=== PATIENT | female | born 1950 | race Caucasian/White ===

== ENCOUNTER → 2016-10-15 | Outpatient (REF) | payer MEDICARE, OTHER ==
[~2016-10-15] MED LIST: /PROM25SU; /ROPI25TA; ACET65TA; AMOX500C PO; APRI0.37 PO; ASPI81TA85 PO; ATEN25TA; BABY81CH; BOSU500T PO; BYET1INJ SC; Byetta PO; COLA50CA PO; COLON HEALTH PO; CRAN600T PO; CRES5TAB; CRES5TAB PO; DRIS50002 PO; FERR325T; FLAG500T PO; GLIP-163 PO; KEFL500C7 PO; LIAL1.2T PO; LIDO1OIN2 TOP; LYRI100C10 PO; LYRI200C PO; MACR100C3 PO; MESA50SU PR; NORCOTAB PO; NORT25CA2; NORT25CA2 PO; NORT50CA; NORT50CA PO; PAXI10TA2 PO; PREG100CA; PREV30TA; PROT1TAB2 PO; PROTPAK PO; REQU0.5T PO; REQU1TAB14 PO; ROCE1INJ4 IV; ROSU10TA2 PO; SOMA350T PO; TASI150C PO; TENO50TA; THERGRAN; TRIC145T19; VANC125C2 PO; VERA27.5; VICT18IN SC; VITAMIN D50000 UNT; ZANT1TAB PO; ZOFR20TA PO; apriso OR; byetta SQ; gleevec; januvia; vitamin D IM
== END | disposition home or self-care (01) ==
LOC: M LAB REF 12:07
PROVIDERS: ATTEND Nurse Practitioner Family
DX: C92.10 Chronic myeloid leukemia, BCR/ABL-positive, not having achieved remission (principal); D64.9 Anemia, unspecified

== ENCOUNTER → 2016-10-15 | Outpatient (REF) | payer MEDICARE, OTHER | LOC: M LAB REF 12:19 | PROVIDERS: ATTEND Nurse Practitioner Family | DX: C92.10 Chronic myeloid leukemia, BCR/ABL-positive, not having achieved remission (principal) ==

== ENCOUNTER 2016-10-17 10:11 | Outpatient (CLI) | payer MEDICARE, OTHER ==
[~2016-10-17 10:11] MED LIST changes: +ACETAMINOPHEN TAB 650MG DOSE (2X325MG) PO SCH; +SODIUM CHLORIDE 0.9% INJ 10 ML SYR IV SCH; +diphenhydrAMINE 25 MG CAP PO SCH
== END 2016-10-17 14:30 | disposition home or self-care (01) ==
LOC: M INFU 10:11
PROVIDERS: ATTEND Nurse Practitioner Family
DX: C92.10 Chronic myeloid leukemia, BCR/ABL-positive, not having achieved remission (principal); D64.9 Anemia, unspecified; G35 Multiple sclerosis; E78.5 Hyperlipidemia, unspecified; I10 Essential (primary) hypertension; I25.2 Old myocardial infarction; G62.9 Polyneuropathy, unspecified; R23.3 Spontaneous ecchymoses; Z87.19 Personal history of other diseases of the digestive system; Z88.1 Allergy status to other antibiotic agents; Z91.040 Latex allergy status; Z91.041 Radiographic dye allergy status; Z79.899 Other long term (current) drug therapy
CPT/HCPCS: 36430; P9038

== ENCOUNTER → 2016-11-05 | Outpatient (REF) | payer MEDICARE, OTHER ==
[~2016-11-05] MED LIST changes: -ACETAMINOPHEN TAB 650MG DOSE (2X325MG) PO SCH; -SODIUM CHLORIDE 0.9% INJ 10 ML SYR IV SCH; -diphenhydrAMINE 25 MG CAP PO SCH
[2016-11-05 13:38] LABS: REASON FOR REVIEW COMPREHENSIVE REVIEW
== END ==
LOC: M LAB REF 12:28
PROVIDERS: ATTEND Internal Medicine Medical Oncology
DX: C92.10 Chronic myeloid leukemia, BCR/ABL-positive, not having achieved remission (principal); D50.0 Iron deficiency anemia secondary to blood loss (chronic); K52.0 Gastroenteritis and colitis due to radiation; N30.41 Irradiation cystitis with hematuria; D72.829 Elevated white blood cell count, unspecified

== ENCOUNTER → 2016-11-12 | Outpatient (REF) | payer MEDICARE, OTHER | LOC: M LAB REF 12:48 | PROVIDERS: ATTEND Internal Medicine Medical Oncology | DX: C92.10 Chronic myeloid leukemia, BCR/ABL-positive, not having achieved remission (principal); D64.9 Anemia, unspecified ==

== ENCOUNTER 2016-11-13 09:53 | Outpatient (CLI) | payer MEDICARE, OTHER ==
[~2016-11-13 09:53] MED LIST changes: +ACETAMINOPHEN TAB 650MG DOSE (2X325MG) PO SCH; +diphenhydrAMINE 25 MG CAP PO SCH
[2016-11-13 10:00] VITALS: BP 144/65
[2016-11-13] MEDS ORDERED: SODIUM CHLORIDE 0.9% INJ 10 ML SYR IV PRN (15:15)
== END 2016-11-13 16:30 | disposition home or self-care (01) ==
LOC: M OPCLI4PV 09:53 → M MSPAV 09:55 → M OPCLI4PV 16:30
PROVIDERS: ATTEND Internal Medicine Medical Oncology
DX: C92.10 Chronic myeloid leukemia, BCR/ABL-positive, not having achieved remission (principal); D64.9 Anemia, unspecified
CPT/HCPCS: 36430; P9016

== ENCOUNTER → 2016-11-26 | Outpatient (REF) | payer MEDICARE, OTHER ==
[~2016-11-26] MED LIST changes: -ACETAMINOPHEN TAB 650MG DOSE (2X325MG) PO SCH; -diphenhydrAMINE 25 MG CAP PO SCH
== END ==
LOC: M LAB REF 16:41
PROVIDERS: ATTEND Internal Medicine Medical Oncology
DX: C92.10 Chronic myeloid leukemia, BCR/ABL-positive, not having achieved remission (principal)

== ENCOUNTER → 2016-12-09 | Outpatient (REF) | payer MEDICARE, OTHER | LOC: M LAB REF 14:17 | PROVIDERS: ATTEND Internal Medicine Medical Oncology | DX: C92.10 Chronic myeloid leukemia, BCR/ABL-positive, not having achieved remission (principal) ==

== ENCOUNTER 2016-12-10 06:52 | Outpatient (CLI) | payer MEDICARE, OTHER ==
[2016-12-10] MEDS ORDERED: diphenhydrAMINE 25 MG CAP PO SCH (07:00)
[2016-12-10] MEDS ORDERED: ACETAMINOPHEN TAB 650MG DOSE (2X325MG) PO SCH (07:01)
[2016-12-10] MEDS ORDERED: SODIUM CHLORIDE 0.9% INJ 10 ML SYR IV SCH (09:00)
== END 2016-12-10 11:30 | disposition home or self-care (01) ==
LOC: M INFU 06:52
PROVIDERS: ATTEND Internal Medicine Medical Oncology
DX: C92.10 Chronic myeloid leukemia, BCR/ABL-positive, not having achieved remission (principal); Z79.899 Other long term (current) drug therapy; Z88.1 Allergy status to other antibiotic agents; Z91.040 Latex allergy status; Z88.8 Allergy status to other drugs, medicaments and biological substances
CPT/HCPCS: 36430; P9038

== ENCOUNTER → 2016-12-18 | Outpatient (REF) | payer MEDICARE, OTHER ==
[2016-12-18 13:45] LABS: PERCENT SATURATION 46.2 % (13.2-37.4)
== END ==
LOC: M LAB REF 12:57
PROVIDERS: ATTEND Internal Medicine Medical Oncology
DX: C92.10 Chronic myeloid leukemia, BCR/ABL-positive, not having achieved remission (principal); D64.9 Anemia, unspecified

== ENCOUNTER → 2016-12-26 | Outpatient (REF) | payer MEDICARE, OTHER | LOC: M LAB REF 16:46 | PROVIDERS: ATTEND Internal Medicine Nephrology | DX: N39.0 Urinary tract infection, site not specified (principal) ==

== ENCOUNTER → 2017-03-27 | Outpatient (REF) | payer MEDICARE, OTHER | LOC: M LAB REF 13:04 | PROVIDERS: ATTEND Internal Medicine Nephrology | DX: N39.0 Urinary tract infection, site not specified (principal) ==

== ENCOUNTER → 2017-04-20 | Outpatient (REF) | payer MEDICARE, OTHER ==
[~2017-04-20] MED LIST changes: +KEFL500C17 PO; -KEFL500C7 PO; -LYRI100C10 PO; -MACR100C3 PO; +MACR100C43 PO; +PAXI10TA12 PO; -PAXI10TA2 PO; +PREG100CA PO; -REQU0.5T PO; +REQU1TAB15 PO
== END ==
LOC: M LAB REF 13:23
PROVIDERS: ATTEND Internal Medicine Nephrology
DX: N39.0 Urinary tract infection, site not specified (principal)

== ENCOUNTER → 2017-05-08 | Outpatient (REF) | payer MEDICARE, OTHER | LOC: M LAB REF 17:05 | PROVIDERS: ATTEND Internal Medicine Nephrology | DX: N39.0 Urinary tract infection, site not specified (principal) ==

== ENCOUNTER → 2017-07-08 | Outpatient (REF) | payer MEDICARE, OTHER | LOC: M LAB REF 12:55 | PROVIDERS: ATTEND Internal Medicine Medical Oncology | DX: C92.10 Chronic myeloid leukemia, BCR/ABL-positive, not having achieved remission (principal) ==

== ENCOUNTER → 2017-07-23 | Outpatient (REF) | payer MEDICARE, OTHER | LOC: M LAB REF 16:52 | PROVIDERS: ATTEND Internal Medicine Nephrology | DX: N39.0 Urinary tract infection, site not specified (principal) ==

== ENCOUNTER → 2017-11-10 | Outpatient (REF) | payer MEDICARE, OTHER | LOC: M LAB REF 13:17 | DX: C92.10 Chronic myeloid leukemia, BCR/ABL-positive, not having achieved remission (principal) | CPT/HCPCS: 88300 ==

== ENCOUNTER → 2017-11-19 | Outpatient (CLI) | payer MEDICARE, OTHER ==
[~2017-11-19] MED LIST changes: -/PROM25SU; -/ROPI25TA; -ACET65TA; -AMOX500C PO; -APRI0.37 PO; -ASPI81TA85 PO; -ATEN25TA; -BABY81CH; -BOSU500T PO; -BYET1INJ SC; -Byetta PO; -COLA50CA PO; -COLON HEALTH PO; -CRAN600T PO; -CRES5TAB; -CRES5TAB PO; -DRIS50002 PO; -FERR325T; -FLAG500T PO; -GLIP-163 PO; -KEFL500C17 PO; -LIAL1.2T PO; -LIDO1OIN2 TOP; +LIDOCAINE 2% MDV 20 ML VIAL As Ordered; -LYRI200C PO; -MACR100C43 PO; -MESA50SU PR; -NORCOTAB PO; -NORT25CA2; -NORT25CA2 PO; -NORT50CA; -NORT50CA PO; -PAXI10TA12 PO; -PREG100CA; -PREG100CA PO; -PREV30TA; -PROT1TAB2 PO; -PROTPAK PO; -REQU1TAB14 PO; -REQU1TAB15 PO; -ROCE1INJ4 IV; -ROSU10TA2 PO; -SOMA350T PO; -TASI150C PO; -TENO50TA; -THERGRAN; -TRIC145T19; -VANC125C2 PO; -VERA27.5; -VICT18IN SC; -VITAMIN D50000 UNT; -ZANT1TAB PO; -ZOFR20TA PO; -apriso OR; -byetta SQ; -gleevec; -januvia; -vitamin D IM
== END | disposition home or self-care (01) ==
LOC: M IRPRO 13:12
DX: Z45.2 Encounter for adjustment and management of vascular access device (principal); C92.10 Chronic myeloid leukemia, BCR/ABL-positive, not having achieved remission
CPT/HCPCS: 36590

== ENCOUNTER → 2017-11-30 | Outpatient (REF) | payer MEDICARE, OTHER | LOC: M LAB REF 17:21 | DX: N39.0 Urinary tract infection, site not specified (principal) | CPT/HCPCS: 87186 ==

== ENCOUNTER → 2018-03-11 | Outpatient (REF) | payer MEDICARE, OTHER | LOC: M LAB REF 13:01 | DX: C92.10 Chronic myeloid leukemia, BCR/ABL-positive, not having achieved remission (principal) | CPT/HCPCS: 88300 ==

== ENCOUNTER → 2018-06-24 | Outpatient (REF) | payer MEDICARE, OTHER | LOC: M LAB REF 12:19 | DX: C92.10 Chronic myeloid leukemia, BCR/ABL-positive, not having achieved remission (principal) | CPT/HCPCS: 88300 ==

== ENCOUNTER → 2018-08-20 | Outpatient (REF) | payer MEDICARE, OTHER | LOC: M LAB REF 12:54 | DX: N39.0 Urinary tract infection, site not specified (principal) | CPT/HCPCS: 87086 ==

== ENCOUNTER → 2018-12-27 | Outpatient (REF) | payer MEDICARE, OTHER ==
[~2018-12-27] MED LIST changes: +/PROM25SU; +/ROPI25TA; +ACET65TA; +AMOX500C PO; +APRI0.37 PO; +ARTH650T11 PO; +ARTH650T17 PO; +ASPI81TA85 PO; +ATEN25TA; +BABY81CH; +BOSU500T PO; +BYET1INJ SC; +Byetta PO; +COLA50CA PO; +COLON HEALTH PO; +CRAN600T PO; +CRES5TAB; +CRES5TAB PO; +DRIS50003 PO; +EZET10TA PO; +FERR325T; +FLAG500T PO; +GLIP-163 PO; +KEFL500C17 PO; +LIAL1.2T PO; +LIDO1OIN2 TOP; -LIDOCAINE 2% MDV 20 ML VIAL As Ordered; +LYRI200C PO; +MACR100C43 PO; +MAGN1TAB25 PO; +MESA50SU PR; +NORCOTAB PO; +NORT25CA2; +NORT25CA2 PO; +NORT50CA; +NORT50CA PO; +PAXI10TA12 PO; +PREG100CA; +PREG100CA PO; +PREV30TA; +PROT1TAB2 PO; +PROTPAK PO; +REQU0.5T PO; +REQU1TAB14 PO; +ROCE1INJ6 IV; +ROSU10TA5 PO; +ROSU20TA4 PO; +SOMA350T PO; +TASI150C PO; +TENO50TA; +THERGRAN; +TRIC145T19; +VANC125C2 PO; +VERA27.5; +VICT18IN SC; +VITAMIN D50000 UNT; +ZANT150T15 PO; +ZOFR4TAB16 PO; +apriso OR; +byetta SQ; +gleevec; +januvia; +vitamin D IM
== END ==
LOC: M LAB REF 13:16
PROVIDERS: ATTEND Internal Medicine Nephrology
DX: N39.0 Urinary tract infection, site not specified (principal)

== ENCOUNTER 2019-02-28 10:47 | Day surgery (SDC) | payer MEDICARE, OTHER ==
[~2019-02-28] VITALS: Ht 160 cm; Wt 98.0 kg
[~2019-02-28 10:47] MED LIST changes: -/ROPI25TA; +BYDU1INJ SC; +CALC1CAP31 PO; +FLON1SPR; +HYDR-3715 PO; +LIDO4CRE4 TOP; -MAGN1TAB25 PO; +MAGN1TAB26 PO; +MULTTAB24 PO; -NORCOTAB PO; +NS 1,000 ML IV ONE; +REQU1TAB14; +TURM500C5 PO; -VANC125C2 PO; +VANC125C3 PO
[2019-02-28] MEDS ORDERED: PROPOFOL 200 MG/20 ML VIAL As Ordered ONE (12:02)
[2019-02-28] MEDS ORDERED: LIDOCAINE 2% INJ 100 MG/5 ML SDV (FOR ANES.) As Ordered ONE (12:02)
--- NOTE | 2019-02-28 12:31 | ROOR ---
Patient Name: Nicole Gloria Procedure Date: 02/28/2019 11:54 AM Date of : 1950 Age: 68 Room: [facility] Gender: Female Note Status: Finalized Procedure: Colonoscopy to 25 cms + Biopsies Indications: Clinically significant diarrhea of unexplained origin Providers: Harjinder Lawler MD Referring MD: GREGORIO WILSON MD Requesting Provider: Medicines: Monitored Anesthesia Care Complications: No immediate complications. Procedure: Pre-Anesthesia Assessment: - The heart rate, respiratory rate, oxygen saturations, blood pressure, adequacy of pulmonary ventilation, and response to care were monitored throughout the procedure. The Colonoscope was introduced through the anus with the intention of advancing to the surgical stoma. The scope was advanced to the sigmoid colon before the procedure was aborted. Medications were given. The Colonoscope was introduced through the and advanced to. The colonoscopy was performed without difficulty. The patient tolerated the procedure well. The quality of the bowel preparation was fair. Findings: The perianal and digital rectal examinations were normal. Non-bleeding internal hemorrhoids were found during retroflexion. The hemorrhoids were small and Grade I (internal hemorrhoids that do not prolapse). The mucosa vascular pattern in the rectum was diffusely increased. A diffuse area of moderately altered vascular, congested, erythematous, granular and inflamed mucosa was found in the recto-sigmoid colon. Biopsies were taken with a cold forceps for histology. A benign-appearing, intrinsic severe stenosis was found at 20 cm proximal to the anus and was traversed. The exam was otherwise without abnormality. Impression: - Preparation of the colon was fair. - Non-bleeding internal hemorrhoids. - Increased mucosa vascular pattern in the rectum. - Altered vascular, congested, erythematous, granular and inflamed mucosa in the recto-sigmoid colon. Biopsied. - Stricture at 20 cm proximal to the anus. - The examination was otherwise normal. Recommendation: - Patient has a contact number available for emergencies. The signs and symptoms of potential delayed complications were discussed with the patient. Return to normal activities tomorrow. Written discharge instructions were provided to the patient. - Low fiber diet. - Discharge patient to home. - Continue present medications. - Await pathology results. - Telephone GI clinic for pathology results in 1 week. - Return to referring physician. - The findings and recommendations were discussed with the patient's family. Harjinder Lawler MD Harjinder Lawler MD 02/28/2019 12:31:14 PM Electronically signed by Harjinder Lawler MD Number of Addenda: 0 Note Initiated On: 02/28/2019 11:54 AM Estimated Blood Loss: Estimated blood loss: none.
[2019-02-28 12:50] VITALS: BP 133/83
--- NOTE | 2019-03-02 14:04 | ROOR ---
Patient Name: Nicole Gloria Procedure Date: 02/28/2019 11:53 AM Date of : 1950 Age: 68 Room: [facility] Gender: Female Note Status: Finalized Procedure: Upper GI endoscopy + Small bowel bx. Indications: Diarrhea Providers: Harjinder Lawler MD Referring MD: GREGORIO WILSON MD Requesting Provider: Medicines: Monitored Anesthesia Care Complications: No immediate complications. Procedure: Pre-Anesthesia Assessment: - The heart rate, respiratory rate, oxygen saturations, blood pressure, adequacy of pulmonary ventilation, and response to care were monitored throughout the procedure. The Endoscope was introduced through the mouth, and advanced to the second part of duodenum. The upper GI endoscopy was accomplished without difficulty. The patient tolerated the procedure well. Findings: The Z-line was regular and was found 40 cm from the incisors. A small hiatal hernia was present. No other significant abnormalities were identified in a careful examination of the stomach. The exam of the duodenum was otherwise normal. Biopsies for histology were taken with a cold forceps in the first portion of the duodenum for evaluation of celiac disease. The exam was otherwise without abnormality. Impression: - Z-line regular, 40 cm from the incisors. - Small hiatal hernia. - The examination was otherwise normal. - Biopsies were taken with a cold forceps for evaluation of celiac disease. - The examination was otherwise normal. Recommendation: - Patient has a contact number available for emergencies. The signs and symptoms of potential delayed complications were discussed with the patient. Return to normal activities tomorrow. Written discharge instructions were provided to the patient. - High fiber diet. - Discharge patient to home. - Follow an antireflux regimen. - Continue present medications. - Await pathology results. - Telephone GI clinic for pathology results in 1 week. - Return to referring physician. - The findings and recommendations were discussed with the patient's family. Harjinder Lawler MD Harjinder Lawler MD 03/02/2019 2:04:05 PM Electronically signed by Harjinder Lawler MD Number of Addenda: 0 Note Initiated On: 02/28/2019 11:53 AM Estimated Blood Loss: Estimated blood loss: none.
== END 2019-02-28 13:10 | disposition home or self-care (01) ==
LOC: M OPP 10:47
PROVIDERS: ATTEND Internal Medicine Gastroenterology
DX: K64.0 First degree hemorrhoids (principal); K63.5 Polyp of colon; K56.699 Other intestinal obstruction unspecified as to partial versus complete obstruction; K52.9 Noninfective gastroenteritis and colitis, unspecified; K44.9 Diaphragmatic hernia without obstruction or gangrene; R19.7 Diarrhea, unspecified

== ENCOUNTER → 2019-11-11 | Outpatient (REF) | payer MEDICARE, OTHER ==
[~2019-11-11] MED LIST changes: -ARTH650T11 PO; +ARTH650T4 PO; +BOSU100T PO; -EZET10TA PO; +EZET10TA21 PO; -NS 1,000 ML IV ONE; -ROSU10TA5 PO; +ROSU10TA6 PO; -ROSU20TA4 PO; +ROSU20TA5 PO
== END ==
LOC: M LAB REF 17:11
PROVIDERS: ATTEND Internal Medicine Nephrology
DX: N39.0 Urinary tract infection, site not specified (principal)

== ENCOUNTER 2020-08-30 12:34 | Outpatient (CLI) | payer MEDICARE, OTHER ==
[~2020-08-30] VITALS: Ht 160 cm; Wt 97.0 kg
[~2020-08-30 12:34] MED LIST changes: +ACETAMINOPHEN TAB 650MG DOSE (2X325MG) PO SCH; +ARTH650T11 PO; -ARTH650T4 PO; -ASPI81TA85 PO; +ASPI81TA86 PO; +FAMO40TA3 PO; +FLUD0.1T PO; +MAGN400T3 PO; +MIDO5TA PO; +PROAAER10 INH; +VASC1CAP2 PO; +VITA50005 PO; +diphenhydrAMINE 25MG CAP PO SCH
[2020-08-30 12:51] VITALS: BP 93/52
[2020-08-30 13:40] VITALS: BP 104/61
[2020-08-30 15:40] VITALS: BP 108/72
== END 2020-08-30 15:50 | disposition home or self-care (01) ==
LOC: M INFU 12:34
PROVIDERS: ATTEND Internal Medicine Hematology & Oncology
DX: D64.9 Anemia, unspecified (principal); Z88.8 Allergy status to other drugs, medicaments and biological substances; Z88.2 Allergy status to sulfonamides; Z91.040 Latex allergy status
CPT/HCPCS: 36430; P9016

== ENCOUNTER → 2020-09-18 | Outpatient (REF) | payer MEDICARE, OTHER ==
[~2020-09-18] MED LIST changes: -ACETAMINOPHEN TAB 650MG DOSE (2X325MG) PO SCH; -diphenhydrAMINE 25MG CAP PO SCH
== END ==
LOC: M LAB REF 17:00
PROVIDERS: ATTEND Internal Medicine Nephrology
DX: N39.0 Urinary tract infection, site not specified (principal)

== ENCOUNTER → 2020-10-26 | Outpatient (CLI) | payer MEDICARE, OTHER ==
--- NOTE | 2020-10-28 08:01 | REP ---
INDICATION: RECHECK. COMPARISON: None. TECHNIQUE: AP, lateral, bilateral oblique views of the left ankle. FINDINGS: Healing fracture of the distal fibular metadiaphysis is suggested. Underlying age-related degenerative changes are identified. Ankle mortise intact. No significant swelling. IMPRESSION: No prior examination for comparison. Findings suggest a healing fracture of the distal fibular metadiaphysis along with chronic age-related changes. <Electronically signed by Avila Turpin > 10/28/20 [id number]
== END ==
LOC: M SOG 08:45
PROVIDERS: ATTEND Orthopaedic Surgery Sports Medicine
DX: S82.65XD Nondisplaced fracture of lateral malleolus of left fibula, subsequent encounter for closed fracture with routine healing (principal)

== ENCOUNTER → 2020-12-13 | Outpatient (CLI) | payer MEDICARE, OTHER ==
[~2020-12-13] MED LIST changes: +LIDOCAINE 1% MDV 20ML VIAL As Ordered ONE; +MIDAZOLAM INJ 2MG/2ML VIAL (J2250 PER 1MG) As Ordered ONE; +ceFAZolin 2 GM/D5W 50 ML IV BAG (J0690 PER 500MG) As Ordered ONE; +diphenhydrAMINE 50MG/ML VIAL (J1200) As Ordered ONE; +fentaNYL 100 MCG/2 ML INJECTION (J3010) As Ordered ONE
--- NOTE | 2020-12-13 13:26 | IRHP ---
[facility] IR Pre-Procedure H & P General Date of Service: Dec 13, 2020 Procedure: Same Day Surgery Interval History and Physical I have seen the patient and reviewed last H & P performed within 30 days. There is no significant interval change. History of Present Illness Chief Complaint The patient is a 70-year-old female admitted with a reason for visit of Chronic Myeloid Leukemia. PRE-PROCEDURE DIAGNOSIS: Leukemia HEART: Normal rate. LUNGS: Normal breathing at rest. ASA Classification ASA Classification: III-Severe systemic dis. Mallampati Score: II NPO: Yes Problems with prior sedation: No Obstructive Sleep Apnea: No Plan moderate sedation Allergies Coded Allergies: Contrast Media (Verified Allergy, Unknown, IV DYE, 02/22/19) ciprofloxacin (Verified Allergy, Unknown, 02/22/19) latex (Verified Allergy, Unknown, 02/22/19) nitrofurantoin (Verified Adverse Reaction, Unknown, PAIN /WEAKNESS, 02/22/19) sulfamethoxazole (Unverified Adverse Reaction, Unknown, 02/22/19) trimethoprim (Unverified Adverse Reaction, Unknown, 02/22/19) Home Medications Scheduled Bosutinib (Bosulif), 3 TAB PO DAILY Calcitriol (Calcitriol), 0.25 MCG PO DAILY, (Reported) Ezetimibe (Ezetimibe), 10 MG PO DAILY, (Reported) Famotidine (Famotidine), 1 TAB PO DAILY Fludrocortisone Acetate (Fludrocortisone Acetate), 1 TAB PO DAILY, (Reported) Fluticasone Propionate (Flonase Allergy Relief), 50 MCG NA DAILY, (Reported) Glipizide (Glipizide Xl), 1.25 MG PO DAILY, (Reported) Icosapent Ethyl (Vascepa), 1 GRAM PO BID, (Reported) Lidocaine (Lidocaine), 5 % TOP ASDIRECTED Magnesium Oxide (Magnesium Oxide), 1 TAB PO DAILY, (Reported) Midodrine HCl (Midodrine HCl), 5 MG PO TID, (Reported) Nortriptyline HCl (Nortriptyline HCl), 25 MG PO DAILY, (Reported) Paroxetine HCl (Paxil), 10 MG PO DAILY, (Reported) Pregabalin (Lyrica), 200 MG PO BID, (Reported) Ropinirole HCl (Requip), 1 MG PO QHS, (Reported) Rosuvastatin Calcium (Rosuvastatin Calcium), 20 MG PO QPM, (Reported) Turmeric Root Extract (Turmeric), 538 MG PO DAILY, (Reported) Scheduled PRN Acetaminophen (Arthritis Pain Relief), 1,300 MG PO for PAIN, (Reported) Albuterol Sulfate (Proair Hfa), 2 PUFF INH Q4-6HP PRN for wheezing, (Reported) Miscellaneous Medications Ergocalciferol (Vitamin D2) (Vitamin D2), 1 CAP PO, (Reported) VS, I&O, 24H, Fishbone Vital Signs/I&O Vital Signs Date Time Temp Pulse Resp B/P (MAP) Pulse Ox O2 Delivery O2 Flow Rate FiO2 12/13/20 11:50 98.2 84 18 96 Room Air GUSTAVO EASTMAN MD Dec 13, 2020 13:26
--- NOTE | 2020-12-13 15:50 | POST-OPPD ---
Postoperative Procedure Note Date Of Procedure: Dec 13, 2020 Time Of Procedure: 15:47 IR Ultrasound and fluoroscopy guided port placement. IR Ultrasound of the neck. IR Moderate sedation. Clinical indication: Leukemia. Physician: Dr. Bellamy. Procedure: The patient was advised of the benefits, risks, and alternatives of the procedure and informed consent was obtained. A time-out was performed with verification of the patient's name, MRN, site of procedure and type of procedure to be performed. The patient was positioned in the supine position on the angiographic table. The site was prepped and draped in the usual sterile fashion. Moderate sedation was performed by the physician including the presence of an independent trained RN who assisted and monitored the patient's level of consciousness and physiologic status. Following the administration of fentanyl and Versed , the physician spent 45 minutes of continuous face to face time with the patient. Ultrasound of the neck reveals a patent and compressible right internal jugular vein. A applications architect radiograph reveals left pleural effusion. The neck and anterior chest wall were anesthetized with lidocaine. The right internal jugular vein was accessed using a microintroducer needle under ultrasound guidance, via a lateral approach. An 018 wire was advanced into the superior vena cava, the needle was removed and a microsheath was placed. An Amplatz wire was then passed into the inferior vena cava. An incision at the internal jugular vein access site and anterior chest wall were made using a scalpel. An incision was made at the anterior chest wall. A small pocket was created using a combination of blunt and sharp dissection. A tunneling device was then used to pass the catheter from the pocket to the neck puncture site. An 8- [employer] Ang[employer] Smart power port was then positioned in the pocket. The catheter was then measured and cut. The introducer sheath was exchanged for a peel-away sheath. The catheter was passed through the peel-away sheath into the internal jugular vein and the peel-away sheath was removed. The port tip was positioned at the cavoatrial junction. The port was then accessed with a Alvares needle. The port flushes and aspirates well. The puncture site in the neck was closed. The chest wall incision was then closed with 2-0 Vicryl and 4-0 Monocryl. Glue and Steri- Strips were applied. A sterile dressing was then applied. The patient tolerated the procedure well and was returned to the PRU in stable condition. Estimated blood loss: <5 ml. Complications: None. Conclusion: 1. Successful placement of an 8-[place] Angio dynamics Smart power port via the right internal jugular vein. The port is ready for immediate use. 2. Patient to follow up in IR clinic in 2 weeks. Thank you for this referral. GUSTAVO BELLAMY MD Dec 13, 2020 15:50
[2020-12-13 16:30] VITALS: BP 112/64
== END ==
LOC: M IRPRO 11:35
PROVIDERS: ATTEND Internal Medicine Hematology & Oncology
DX: C92.10 Chronic myeloid leukemia, BCR/ABL-positive, not having achieved remission (principal); J90 Pleural effusion, not elsewhere classified
CPT/HCPCS: 36561; 99152; 99153; C1769; C1788; C1887; C1894; J0690; J1642; J1644; J2250; J3010

== ENCOUNTER → 2021-01-08 | Outpatient (POV) | payer MEDICARE, OTHER ==
[~2021-01-08] MED LIST changes: -LIDOCAINE 1% MDV 20ML VIAL As Ordered ONE; -MIDAZOLAM INJ 2MG/2ML VIAL (J2250 PER 1MG) As Ordered ONE; -ceFAZolin 2 GM/D5W 50 ML IV BAG (J0690 PER 500MG) As Ordered ONE; -diphenhydrAMINE 50MG/ML VIAL (J1200) As Ordered ONE; -fentaNYL 100 MCG/2 ML INJECTION (J3010) As Ordered ONE
--- NOTE | 2021-01-11 10:13 | IRPN ---
[facility] IR Progress Note IR Progress Note DATE: Jan 08, 2021 Patient agreed to this telephone follow up. I spent 5 minutes talking to the patient. FOLLOW-UP: Status post port placement. Patients reports doing well. Denies pain, swelling or discharge at the site. Port was used without any issues. ON EXAMINATION: No video on patient side. IMPRESSION: Doing well status post port placement. No further follow up scheduled unless initiated by patient and or referring provider. Thank you for this referral Allergies Coded Allergies: Contrast Media (Verified Allergy, Unknown, IV DYE, 02/22/19) ciprofloxacin (Verified Allergy, Unknown, 02/22/19) latex (Verified Allergy, Unknown, 02/22/19) nitrofurantoin (Verified Adverse Reaction, Unknown, PAIN /WEAKNESS, 02/22/19) sulfamethoxazole (Unverified Adverse Reaction, Unknown, 02/22/19) trimethoprim (Unverified Adverse Reaction, Unknown, 02/22/19) GUSTAVO EASTMAN MD Jan 11, 2021 10:13
== END ==
LOC: M TMIRPOV 10:15
PROVIDERS: ATTEND Radiology Diagnostic Radiology
DX: Z45.2 Encounter for adjustment and management of vascular access device (principal); Z88.1 Allergy status to other antibiotic agents; Z91.040 Latex allergy status; Z91.041 Radiographic dye allergy status

== ENCOUNTER → 2021-01-24 | Outpatient (REF) | payer MEDICARE, OTHER | LOC: M LAB REF 16:41 | PROVIDERS: ATTEND Internal Medicine Nephrology | DX: N39.0 Urinary tract infection, site not specified (principal) ==

== ENCOUNTER 2021-04-02 07:25 | Outpatient (CLI) | payer MEDICARE, OTHER ==
[~2021-04-02] VITALS: Ht 160 cm; Wt 97.0 kg
[2021-04-02] VITALS (7 sets, daily range): BP systolic 140–173; BP diastolic 64–74
[~2021-04-02 07:25] MED LIST changes: +ACETAMINOPHEN TAB 650MG DOSE (2X325MG) PO SCH; +ERGO500029 PO; +FERR325T3 PO; +TIZA4TAB4 PO; -VITA50005 PO; +diphenhydrAMINE 25MG CAP PO SCH
[2021-04-02] MEDS ORDERED: SODIUM CHLORIDE 0.9% INJ 10 ML SYR IV PRN (08:00)
[2021-04-02] MEDS ORDERED: SODIUM CHLORIDE 0.9% INJ 10 ML SYR IV SCH (09:00)
== END 2021-04-02 11:30 | disposition home or self-care (01) ==
LOC: M INFU 07:25
PROVIDERS: ATTEND Internal Medicine Hematology & Oncology
DX: D64.9 Anemia, unspecified (principal); Z88.1 Allergy status to other antibiotic agents; Z88.2 Allergy status to sulfonamides; Z91.041 Radiographic dye allergy status; Z91.040 Latex allergy status
CPT/HCPCS: 36430; 96523; J1642; P9016; P9040

== ENCOUNTER → 2021-04-29 | Outpatient (REF) | payer MEDICARE, OTHER ==
[~2021-04-29] MED LIST changes: -ACETAMINOPHEN TAB 650MG DOSE (2X325MG) PO SCH; -diphenhydrAMINE 25MG CAP PO SCH
== END ==
LOC: M LAB REF 16:57
PROVIDERS: ATTEND Internal Medicine Nephrology
DX: N18.4 Chronic kidney disease, stage 4 (severe) (principal); N39.0 Urinary tract infection, site not specified; E83.42 Hypomagnesemia

== ENCOUNTER → 2021-11-19 | Outpatient (REF) | payer MEDICARE, OTHER ==
[~2021-11-19] MED LIST changes: +AMOX875T2; -MAGN400T3 PO; +MAGN400T33 PO; +POTA-151; +ROPI0.2534 PO; +SODI650T; +TIZA10TA PO; -TIZA4TAB4 PO; +[UNRECOGNIZED DRUG - OTHER]
== END ==
LOC: M LAB REF 13:28
PROVIDERS: ATTEND Internal Medicine Nephrology
DX: N17.9 Acute kidney failure, unspecified (principal); E83.42 Hypomagnesemia

== ENCOUNTER → 2021-12-31 | Outpatient (CLI) | payer MEDICARE, OTHER ==
[~2021-12-31] MED LIST changes: +LEVO25TA5 PO
== END ==
LOC: M LAB 16:51
PROVIDERS: ATTEND Specialist
DX: D64.9 Anemia, unspecified (principal); N39.0 Urinary tract infection, site not specified

== ENCOUNTER → 2021-12-31 | Outpatient (REF) | payer MEDICARE, OTHER | LOC: M LAB REF 16:39 | PROVIDERS: ATTEND Internal Medicine Nephrology | DX: N39.0 Urinary tract infection, site not specified (principal) ==

== ENCOUNTER 2022-01-01 10:50 | Outpatient (CLI) | payer MEDICARE, OTHER ==
[~2022-01-01 10:50] MED LIST changes: +ACETAMINOPHEN TAB 650MG DOSE (2X325MG) PO SCH; +SODIUM CHLORIDE 0.9% INJ 10 ML SYR IV SCH; +diphenhydrAMINE 25MG CAP PO SCH
[2022-01-01 12:10] VITALS: BP 161/72
[2022-01-01 12:25] VITALS: BP 125/60
[2022-01-01] MEDS ORDERED: SODIUM CHLORIDE 0.9% INJ 10 ML SYR IV PRN (12:40)
[2022-01-01 14:06] VITALS: BP 128/78
[2022-01-01 14:20] VITALS: BP 144/66
[2022-01-01 16:09] VITALS: BP 179/88
== END 2022-01-01 16:10 | disposition home or self-care (01) ==
LOC: M INFU 10:50
PROVIDERS: ATTEND Internal Medicine Medical Oncology
DX: N18.4 Chronic kidney disease, stage 4 (severe) (principal); D63.1 Anemia in chronic kidney disease
CPT/HCPCS: 36430; 96523; J1642; P9016; P9040

== ENCOUNTER → 2022-01-21 | Outpatient (CLI) | payer MEDICARE, OTHER ==
[~2022-01-21] MED LIST changes: -ACETAMINOPHEN TAB 650MG DOSE (2X325MG) PO SCH; -SODIUM CHLORIDE 0.9% INJ 10 ML SYR IV SCH; -diphenhydrAMINE 25MG CAP PO SCH
== END ==
LOC: M SOG 10:55
PROVIDERS: ATTEND Physician Assistant
DX: M79.641 Pain in right hand (principal); M19.041 Primary osteoarthritis, right hand; M77.8 Other enthesopathies, not elsewhere classified

== ENCOUNTER → 2022-02-10 | Outpatient (REF) | payer MEDICARE, OTHER ==
[2022-02-10 10:54] LABS: BILIRUBIN,TOTAL 0.3 MG/DL (0.2-1.0); CALCIUM LEVEL 9.1 MG/DL (8.8-10.2); CREATININE FOR GFR 2.16 MG/DL (0.55-1.30); GLOMERULAR FILTRATION RATE 23.9 (>39); POTASSIUM SERUM 4.5 MEQ/L (3.5-5.1); TOTAL PROTEIN 7.5 GM/DL (6.4-8.2)
== END ==
LOC: M LAB REF 10:04
PROVIDERS: ATTEND Registered Nurse
DX: E11.65 Type 2 diabetes mellitus with hyperglycemia (principal)

== ENCOUNTER → 2022-03-03 | Outpatient (REF) | payer MEDICARE, OTHER ==
[2022-03-03 11:21] LABS: BILIRUBIN,TOTAL 0.2 MG/DL (0.2-1.0); CALCIUM LEVEL 8.6 MG/DL (8.8-10.2); CREATININE FOR GFR 2.24 MG/DL (0.55-1.30); GLOMERULAR FILTRATION RATE 22.9 (>39); POTASSIUM SERUM 5.4 MEQ/L (3.5-5.1); TOTAL PROTEIN 7.4 GM/DL (6.4-8.2)
== END ==
LOC: M LAB REF 10:19
PROVIDERS: ATTEND Registered Nurse
DX: N18.4 Chronic kidney disease, stage 4 (severe) (principal)

== ENCOUNTER → 2022-04-24 | Outpatient (CLI) | payer MEDICARE, OTHER | LOC: M SOG 09:57 | PROVIDERS: ATTEND Orthopaedic Surgery Hand Surgery | DX: M79.641 Pain in right hand (principal) ==